=== PATIENT | female | born 1955 | race Caucasian/White ===

== ENCOUNTER 2016-10-02 11:53 | Emergency (ER) | payer OTHER ==
[~2016-10-02] VITALS: Ht 167.6 cm; Wt 90.7 kg
[~2016-10-02 11:53] MED LIST: FOLIC ACID 1 MG PO; METHOTREXA50 MG/2 ML PO; MONTELUKAST SODI4 MG PO; NITROSTAT 0.4MG1 BO2 SL; PERCOCET 325 MG1 TA2 PO; VITAMIN D50000 IU PO
[2016-10-02] MEDS ORDERED: METHOTREXATE2.5 M2 PO (12:22)
[2016-10-02] MEDS ORDERED: RANITIDINE HCL150 MG PO (12:23)
[2016-10-02] MEDS ORDERED: ADVAIR 500-501 EACH INH (12:23)
[2016-10-02] MEDS ORDERED: FOLIC ACID1 M1 PO (12:23)
[2016-10-02] MEDS ORDERED: ZANTAC300 MG PO (12:24)
--- NOTE | 2016-10-02 13:08 | ED HAND/WRIST INJURY COMPLAINT ---
History of Present Illness General Chief Complaint: Hand or Wrist Injury Stated Complaint: L WRIST INJURY Source: patient, family, old records Exam Limitations: no limitations Vital Signs & Intake/Output Vital Signs & Intake/Output Vital Signs Date Time Temp Pulse Resp B/P B/P Pulse O2 O2 Flow FiO2 Mean Ox Delivery Rate 10/02 1201 97.6 66 15 133/79 96 Room Air Room Air Allergies Coded Allergies: No Known Allergies (10/02/16) Reconcile Medications Fluticasone/Salmeterol (Advair 500-50 Diskus) 500 MCG-50 MCG/DOSE BLST.W.DEV 2 PUF INH QAM ASTHMA (Reported) Folic Acid 1 MG TABLET 1 TAB PO DAILY PRN SUPPLEMENT (Reported) Methotrexate 2.5 MG TABLET 4 TAB PO QW RA (Reported) Ranitidine (Ranitidine HCl) 150 MG TABLET 1 TAB PO QPM GERD (Reported) Ranitidine HCl (Zantac) 300 MG TABLET 1 TAB PO QAM GERD (Reported) Triage Note: PT TO ED FOR L WRIST PAIN S/P TRIP AND FALL. PT CAUGHT HER FALL WITH HAND. +CMS TO LEFT HAND. Triage Nurses Notes Reviewed? yes Occurred: just prior to arrival Duration: minute(s):, constant, continues in ED Timing: recent history Injury Environment: home Severity: moderate, severe Pain/Injury Location: Left: Wrist. Context: fall Method of Injury: fall Modifying Factors: Improves With: immobilization. Worsens With: jarring, movement. Associated Symptoms: swelling, GCS 15 since, stiffness LMP (ages 10-50): post menopausal : No Patient currently breastfeeds: No HPI: Prior to admission patient slipped and fell onto outstretched left wrist. She complains of limited range of motion severe sharp constant pain nonradiating worse with movement palpation. She is right-hand dominant. There is no other injury fever chills nausea vomiting diarrhea abdominal pain chest pain shortness breath headache dysuria rash bleeding. Past History Travel History Traveled to [place] past 21 day No Medical History Any Pertinent Medical History? see below for history Respiratory: asthma Gastrointestinal: GERD Musculoskeletal: RA History of MRSA: No History of VRE: No History of CDIFF: No Surgical History Surgical History: non-contributory Psychosocial History Who do you live with Family What is your primary language Chinese Tobacco Use: Never used ETOH Use: denies use Illicit Drug Use: denies illicit drug use Family History Family History, If Any: MOTHER (Methastatic Breast Cancer). . FATHER (Lung Cancer). . SON (H/o DVT and PE). Hx Contributory? No Review of Systems Review of Systems Constitutional: Reports: no symptoms. EENTM: Reports: no symptoms. Respiratory: Reports: no symptoms. Cardiovascular: Reports: no symptoms. GI: Reports: no symptoms. Genitourinary: Reports: no symptoms. Musculoskeletal: Reports: see HPI, joint pain, joint swelling. Skin: Reports: no symptoms. Neurological/Psychological: Reports: no symptoms. Hematologic/Endocrine: Reports: no symptoms. Immunologic/Allergic: Reports: no symptoms. All Other Systems: Reviewed and Negative Physical Exam Physical Exam General Appearance: well developed/nourished, alert, awake, anxious, severe distress, obese Head: atraumatic, normal appearance Eyes: Bilateral: normal appearance, PERRL, EOMI. Ears, Nose, Throat: normal pharynx, normal ENT inspection, hearing grossly normal Neck: normal inspection, supple, full range of motion, no midline tenderness Cardiovascular/Respiratory: normal breath sounds, regular rate/rhythm Back: normal inspection, normal range of motion Shoulder Left: normal range of motion, normal inspection Shoulder Right: normal range of motion, normal inspection Elbow Left: normal range of motion, normal inspection Elbow Right: normal range of motion, normal inspection Forearm Left: normal range of motion, normal inspection Forearm Right: normal range of motion, normal inspection Wrist Left: swelling, tenderness, bone tenderness, soft tissue tenderness, limited range of motion Wrist Right: normal range of motion, normal inspection Hand Left: normal inspection, normal range of motion Hand Right: normal inspection, normal range of motion Reflexes: 2+: bicep (R), bicep (L). Neurologic/Tendon: normal sensation, normal motor functions, normal tendon functions Skin: intact, normal color, warm/dry Lymphatic: no anterior cervical cuong Progress Differential Diagnosis: dislocation, fracture, sprain Plan of Care: Orders Procedure Date/time Status Durable Medical Equipment 10/02 1401 Active Diagnostic Imaging: Viewed by Me: Radiology Read. Discussed w/RAD: Radiology Read. Radiology Impression: 1. Angulated, comminuted, intra-articular distal radial fracture. 2. Tiny ulnar styloid fracture. Departure Departure Time of Disposition: 1405 Disposition: HOME OR SELF CARE Condition: Stable Clinical Impression Primary Impression: Wrist fracture, left Qualifiers: Encounter type: initial encounter Fracture type: closed Qualified Code: S62.102A - Fracture of unspecified carpal bone, left wrist, initial encounter for closed fracture Referrals: AMITA JOHNSON,CELINA (PCP/Family) RENAN TAVAREZ MD Call for orthopedic follow up Departure Forms: Customer Survey General Discharge Information Prescriptions: Current Visit Scripts Oxycodone HCl/Acetaminophen (Percocet 5-325 MG Tablet) 1-2 TAB PO Q6P PRN severe pain #20 TAB Procedures Splinting Location: Left wrist Manual Alignment Performed: No Hand-Made Type: orthoglass Splint: sugar-tong Splint Applied By: splint applied by me Pre-Proc Neuro Vasc Exam: normal Post-Proc Neuro Vasc Exam: normal
--- NOTE | 2016-10-02 13:20 | RADIOLOGY REPORT ---
EXAMINATION: XR WRIST, LEFT CLINICAL INFORMATION: Swelling and pain status post fall. COMPARISON: None TECHNIQUE: AP, lateral, and oblique views of the left wrist. FINDINGS: There is an impacted, intra-articular, mildly comminuted fracture with apex volar angulation involving the distal radius. Tiny ulnar styloid fracture. No widening of the distal radial ulnar joint. The carpal arcs appear maintained. Decreased bone mineral density. IMPRESSION: 1. Angulated, comminuted, intra-articular distal radial fracture. 2. Tiny ulnar styloid fracture.
[2016-10-02] MEDS ORDERED: PERCOCET 5-3251 EACH PO (14:07)
[2016-10-02 14:18] VITALS: BP 140/71
== END 2016-10-02 14:20 ==
LOC: ERH 11:53
DX: S52.572A Other intraarticular fracture of lower end of left radius, initial encounter for closed fracture (principal); W01.0XXA Fall on same level from slipping, tripping and stumbling without subsequent striking against object, initial encounter; Y92.9 Unspecified place or not applicable; Y93.9 Activity, unspecified
CPT/HCPCS: 73110-LT